=== PATIENT | female | born 2000 | race Caucasian/White ===

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

== ENCOUNTER 2022-01-15 11:04 | Emergency (ER) | payer OTHER, SELFPAY ==
[2022-01-15 11:42] VITALS: BP 124/72; PULSE 84; RESP 18; TEMP 36.6; O2SAT 100
--- NOTE | 2022-01-15 12:35 | ED.GENADULT ---
HPI - General Adult General Chief complaint: Back Pain/Injury Stated complaint: back pain Time Seen by Provider: 01/15/22 11:55 History of Present Illness HPI narrative: 21-year-old female presenting to the emergency department for evaluation of increased lower back pain over the last few days. Patient does work at [employer] and states that she thinks it may be secondary to lifting. Patient states her back pain started a few days ago but has been slowly worsening. Patient denies any specific incident of injury. Patient states she has lower back pain that is worsened with movement. Patient denies any associated numbness or weakness. Patient denies any urinary symptoms. Patient denies . Patient has no prior history of back surgeries. Patient has been taking Excedrin for Related Data Home Medications Medication Instructions Recorded Confirmed ketorolac 10 mg tablet 10 mg PO Q8H 10/12/19 10/12/19 ondansetron 4 mg disintegrating 4 mg PO Q6H 10/12/19 10/12/19 tablet sertraline 50 mg tablet 50 mg PO DAILY 10/12/19 10/12/19 sumatriptan succinate 25 mg tablet 25 mg PO DIRECTED 10/12/19 10/12/19 topiramate 50 mg tablet 50 mg PO BID 10/12/19 10/12/19 Allergies Allergy/AdvReac Type Severity Reaction Status Date / Time bee pollen Allergy Unknown Swelling Verified 11/30/20 18:41 vancomycin AdvReac Unknown Redness of Verified 11/30/20 18:41 Skin Wasp Allergy Unknown Swelling Uncoded 10/12/19 22:19 Review of Systems Review of Systems: CONSTITUTIONAL: Denies fever, chills, or sweats. EYES: Denies visual changes, redness, or discharge. ENT: Denies rhinorrhea, congestion, sore throat, or otalgia. CARDIOVASCULAR: Denies chest pain, palpitations, or edema. RESPIRATORY: Denies cough or dyspnea. GASTROINTESTINAL: Denies abdominal pain, nausea, vomiting, or diarrhea. GENITOURINARY: Denies dysuria or hematuria. SKIN: Denies rash or itching. MUSCULOSKELETAL: Lower back pain NEUROLOGIC: Denies headache, numbness, or weakness. [facility] Past Medical History Medical History Migraine Family History Family History (Updated 10/13/19 @ 03:37 by Luis Felipe Guzman MD) Mother No problems noted. Social History Social History Smoking status: Never smoker Gender identity (if verbalized by the patient): Female Exam Narrative: APPEARANCE: Well appearing, no pain, no distress, well-nourished. HEAD: normocephalic, atraumatic. EYES: PERRLA/EOMI, conjunctivae clear. NOSE: Normal no drainage NECK: Supple. No adenopathy, no masses. RESPIRATORY: Airway patent, respirations nonlabored. Clear to auscultation bilaterally, no rales, rhonchi, wheezing. CARDIOVASCULAR: Regular rate and rhythm without murmurs rubs or gallops. ABDOMINAL: Soft, nontender, nondistended, normal bowel sounds MUSCULOSKELETAL: Moves all extremities. Strength/ROM intact, No edema, No calf tenderness. Reproducible lower back midline tenderness with no step-offs or deformity. NEURO: Alert. Cranial nerves II through XII intact. Grossly intact SKIN: Warm, dry. Normal Color Course Course Emergency Course: Patient and family were updated on the results of exam and plan for treatment at home. Patient will be advised to do Tylenol and ibuprofen for pain control and patient will also be prescribed Flexeril for muscle spasm. Patient was encouraged of close follow-up with her primary care physician. Vital Signs Vital signs: Vital Signs Temperature 97.9 F 01/15/22 11:42 Pulse Rate 84 01/15/22 11:42 Respiratory Rate 18 01/15/22 11:42 Blood Pressure 124/72 01/15/22 11:42 Pulse Oximetry 100 01/15/22 11:42 Oxygen Delivery Room Air 01/15/22 11:42 Temperature 97.9 F 01/15/22 11:42 Pulse Rate 84 01/15/22 11:42 Respiratory Rate 18 01/15/22 11:42 Blood Pressure 124/72 01/15/22 11:42 Pulse Oximetry 100 01/15/22 11:42
== END 2022-01-15 13:04 | disposition home or self-care (01) ==
PROVIDERS: Emergency Provider Emergency Medicine
DX: S39.012A Strain of muscle, fascia and tendon of lower back, initial encounter (principal); X50.0XXA Overexertion from strenuous movement or load, initial encounter
CPT/HCPCS: 99283

== ENCOUNTER 2022-06-07 12:08 | Observation (INO) | payer OTHER, SELFPAY ==
[2022-06-07] VITALS (25 sets, daily range): BP systolic 118–147; BP diastolic 53–92; PULSE 95–122; RESP 11–25; TEMP 36.8–36.9; O2SAT 97–100; BMI 37.9
--- NOTE | ~2022-06-07 | XR_ITS ---
EXAMINATION: XR chest 1V portable 06/07/2022 14:41 INDICATION: Overdose PROCEDURE: AP portable chest COMPARISON: 08/29/2016 FINDINGS: The lungs are clear. The cardiomediastinal silhouette is within normal limits. There are no pleural effusions. There is no pneumothorax suspected. IMPRESSION: 1: NO ACUTE CARDIOPULMONARY DISEASE. Reviewed, dictated and finalized at location A. [facility]
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
--- NOTE | 2022-06-07 12:28 | PC.NURSE ---
call to [place] poison control trintellix- 7-11 hrs peak. drowsy, GI upset Buspar- N/V WATCH OUT SEROTONIN SYNDROME WITHIN 6HRS
[2022-06-07 12:36] LABS: Basophils Absolute Auto 0.1 K/mm3 (0.0-0.1); Eosinophils Absolute Auto 0.4 K/mm3 (0-0.3); Eosinophils Percent Auto 4.9 % (0-4.4); Hematocrit 42.8 % (37.0-47.0); Hemoglobin 13.6 g/dL (12.0-15.0); Immature Granulocyte Absolute 0.03 K/mm3 (0.00-0.031); Immature Granulocyte Percent A 0.3 % (0-0.5); Lymphocytes Absolute Auto 2.28 K/mm3 (0.9-3.2); Lymphocytes Percent Auto 25.5 % (18.3-44.2); Mean Corpuscular HGB Conc 31.8 g/dl (32-36); Mean Corpuscular Hemoglobin 30.1 pg (26-34); Mean Corpuscular Volume 94.7 fl (80-100); Mean Platelet Volume 10.5 fl (7.4-10.4); Monocytes Absolute Auto 0.6 K/mm3 (0.1-0.6); Neutrophils Absolute Auto 5.5 K/mm3 (1.3-6.7); Neutrophils Percent Auto 61.3 % (45.5-73.1); Platelet Count Result 347 k/mm3 (150-375); Red Blood Count 4.52 M/mm3 (4.2-5.4); Red Cell Distribution Width 13.5 % (11.5-14.5)
[2022-06-07 12:45] LABS: Acetaminophen < 10 ug/mL (10-30); Ethanol < 10 mg/dL (<10); Salicylate 1.8 mg/dL (2-20)
[2022-06-07 12:47] LABS: Alanine Aminotransferase 23 U/L (6-35); Albumin Level 4.5 g/dL (3.7-5.6); Alkaline Phosphatase 91 U/L (45-116); Anion Gap 6 mmol/L (8-16); Aspartate Amino Transferase 29 U/L (14-36); Bilirubin,Total 0.3 mg/dL (0.2-1.3); Blood Urea Nitrogen 16 mg/dL (8-21); Carbon Dioxide 30 mmol/L (22-30); Chloride 101 mmol/L (98-107); Estimated CRCL calculation 108 ml/min; Estimated Glomerular Filt Rate > 60; Glucose 85 mg/dL (65-110); Potassium 3.7 mmol/L (3.4-5.0); Sodium 137 mmol/L (134-143)
--- NOTE | 2022-06-07 12:51 | ECG_ITS ---
Measurements Intervals [place] Rate: 101 P: 49 GA: 145 QRS: 53 QRSD: 97 T: 47 QT: 331 QTc: 429 Interpretive Statements SINUS TACHYCARDIA BORDERLINE ECG NO PREVIOUS ECG AVAILABLE FOR COMPARISON Electronically Signed On 06-07-2022 13:06:13 [employer] by Marshall Perez D.O.
[2022-06-07 12:58] LABS: Appearance Urine Clear (Clear); Bilirubin Urine Negative (Negative); Blood Urine Negative (Negative); Color Urine Yellow (Yellow); Glucose Urine UA Negative (Negative); Ketones Urine Negative (Negative); Leukocyte Esterase Ur 1+ LEU/UL (Negative); Nitrate Urine Negative (Negative); Protein Urine Negative (Negative); Urobilinogen Urine 0.2 mg/dL (<2.0)
[2022-06-07 13:08] LABS: Add Urine Microscopic? YES; RBC Urine 0-2 /hpf (0-2); Squamous Epithelial Cell Urine Many /hpf (Few)
[2022-06-07 13:13] LABS: Influenza A QL RT-PCR Negative (Negative); Influenza B QL RT-PCR Negative (Negative); SARS-CoV-2 RNA PCR Negative
[2022-06-07 13:17] LABS: Amphetamine Screen Urine Negative (Negative); Barbiturate Screen Urine Negative (Negative); Benzodiazepines Screen Urine Negative (Negative); Cannabinoid Screen Urine Negative (Negative); Cocaine Screen Urine Negative (Negative); Methadone Screen Urine Negative (Negative); Opiate Screen Urine Negative (Negative); Phencyclidine Screen Urine Negative (Negative)
[2022-06-07] MEDS: SODIUM CHLORIDE 0.9% IV 1,000 ML 999 ML IV CONT ×2 (14:53→16:20)
[2022-06-07] MEDS: IBUPROFEN 600 MG TABLET PO (14:53)
[2022-06-07] MEDS: ACETAMINOPHEN 325 MG TABLET 650 MG PO ×2 (14:54→20:35)
--- NOTE | 2022-06-07 15:24 | PC.NURSE ---
[facility] REQUESTED PER POISON CONTROL
[2022-06-07 15:44] LABS: Device ROOM AIR; Fractional Inspired Oxygen 21 %; HCO3 VBG 25.6 mEq/l (24.0-30.0); PCO2 VBG 47.7 mmHg (42.0-48.0); pH VBG 7.348 (7.300-7.400)
--- NOTE | 2022-06-07 16:10 | ADMGEN ---
This patient, Marielos Renae, was admitted to Intensive Care Unit-4. Patient/family oriented to hospital policies and general routines including ID bracelet, bed and alarms, visiting hours, pain management, procedures, bathroom and other care routines, personal items, smoking policy, room service/diet, and visiting hours. Information on how to activate the Rapid Response Team has been discussed. Patient/Family are encouraged to report perceived risks to care and to ask questions if they do not understand what they are told or what they should do.
--- NOTE | 2022-06-07 16:15 | PM.IMHP ---
H&P: HPI History of Present Illness Date/Time: 06/07/22 16:15 Chief Complaint: Intentional overdose. Narrative: This is a 21-year-old female with history of anxiety and depression who presented to the emergency department for evaluation after intentional overdose. Patient reports that she has suffered from depression and anxiety for many years and ?I have always hated my life and I have wished I was for awhile.? She has sought treatment and was started on BuSpar and Trintellix by her primary care provider about a month ago though she has not noticed any meaningful difference and in fact she has been having anger episodes which never occurred before. She continues to have crying episodes as well. In any event today she had an argument with her grandmother and she reports taking 20 tablets of her BusPar and 5 tablets of her Trintellix in a suicide attempt. Her grandmother saw her take the pills and called 911. She was tachycardic on arrival but vital signs were otherwise stable. Poison Control was contacted and they recommend the patient be watched closely for 8 to 12 hours, specifically watching for hyperthermia, hypertonia, cardiac arrhythmia, seizure, hypertension, and serotonin syndrome. At the time of my evaluation she is resting and has no specific complaints. She is no longer feeling suicidal though mentally she still wishes as though she were . No prior history of suicide attempts or family history of suicide. Review of Systems Review of Systems: Twelve systems were reviewed and are negative except for as per HPI [facility] Past Medical History Medical History (Updated 06/07/22 @ 16:16 by Jaleesa Humphrey PA-C) Anxiety Asthma Major depression Migraine Surgical History Surgical History (Updated 06/07/22 @ 21:56 by Jaleesa Humphrey PA-C) History of cholecystectomy History of tonsillectomy and adenoidectomy Family History Family History Mother No problems noted. Social History Social History (Updated 06/07/22 @ 21:57 by Jaleesa Humphrey PA-C) Social History: Surrogate medical decision maker: Asha Randhawa, mother. Code status: Full code. Smoking status: Never smoker Alcohol intake: never Substance use: never Lack of Transportation: No Lack of Food: Never True Current Housing: I Do Not Have Housing Concerned About Future Housing: No Difficulty Paying Gas/Electric Bills: No Difficulty Paying for Meds: No Currently Unemployed: YES Education: Grade School Difficulty w/ Childcare or Family Care: No Additional living arrangements comments: Lives with family. Additional occupation/education comments: Works at [employer]. Spiritual care concerns: No Meds Home Medications and Allergies Home Medications Medication Instructions Recorded Confirmed Type atogepant 30 mg tablet (Qulipta) 30 mg PO DAILY 06/07/22 06/07/22 History buspirone 5 mg tablet 5 mg BID 06/07/22 06/07/22 History fexofenadine 180 mg tablet 180 mg PO DAILY 06/07/22 06/07/22 History (Allergy Relief (fexofenadine)) vortioxetine 10 mg tablet 10 mg PO DAILY 06/07/22 06/07/22 History (Trintellix) Allergies Allergy/AdvReac Type Severity Reaction Status Date / Time bee pollen Allergy Unknown Swelling Verified 06/07/22 12:25 vancomycin AdvReac Unknown Redness of Verified 06/07/22 12:25 Skin Wasp Allergy Unknown Swelling Uncoded 10/12/19 22:19 Vital Signs Vital Signs - 24 hr 06/07/22 12:09 06/07/22 12:26 06/07/22 12:27 Temperature 98.5 F Pulse Rate 112 H 105 H Respiratory Rate 11 L 18 Blood Pressure 124/84 Pulse Oximetry 100 Oxygen Delivery Room Air 06/07/22 13:13 06/07/22 12:26 06/07/22 12:30 Temperature Pulse Rate 110 H 99 105 H Respiratory Rate 16 11 L 18 Blood Pressure 129/86 Pulse Oximetry 98 Oxygen Delivery 06/07/22 12:31 06/07/22 12:47 06/07/22 13:16 Temperature Pulse Rate 1
[2022-06-07] MEDS: SODIUM CHLORIDE 0.9% IV 1,000 ML 150 ML IV CONT (17:35)
[2022-06-08] VITALS (9 sets, daily range): BP systolic 112–124; BP diastolic 57–101; PULSE 80–108; RESP 14–22; TEMP 36.4–36.8; O2SAT 99–100; BMI 38.7
[2022-06-08] MEDS: SODIUM CHLORIDE 0.9% IV 1,000 ML 150 ML IV CONT (01:03)
[2022-06-08 04:20] LABS: Hematocrit 36.8 % (37.0-47.0); Hemoglobin 11.6 g/dL (12.0-15.0); Mean Corpuscular HGB Conc 31.5 g/dl (32-36); Mean Corpuscular Volume 95.1 fl (80-100); Mean Platelet Volume 10.5 fl (7.4-10.4); Platelet Count Result 253 k/mm3 (150-375); Red Blood Count 3.87 M/mm3 (4.2-5.4); Red Cell Distribution Width 13.3 % (11.5-14.5); White Blood Count 7.5 K/mm3 (4.5-10.0)
[2022-06-08 04:58] LABS: Alanine Aminotransferase 18 U/L (6-35); Albumin Level 3.1 g/dL (3.7-5.6); Alkaline Phosphatase 62 U/L (45-116); Anion Gap 5 mmol/L (8-16); Aspartate Amino Transferase 21 U/L (14-36); Bilirubin,Total 0.3 mg/dL (0.2-1.3); Blood Urea Nitrogen 9 mg/dL (8-21); Calcium 7.6 mg/dL (8.9-10.7); Carbon Dioxide 22 mmol/L (22-30); Chloride 111 mmol/L (98-107); Estimated CRCL calculation 132 ml/min; Estimated Glomerular Filt Rate > 60; Glucose 84 mg/dL (65-110); Magnesium 1.9 mg/dL (1.6-2.3); Potassium 3.7 mmol/L (3.4-5.0); Sodium 138 mmol/L (134-143)
[2022-06-08] MEDS: ACETAMINOPHEN 325 MG TABLET 650 MG PO (05:23)
[2022-06-08 05:28] LABS: Thyroid Stimulating Hormone Reflex 0.763 uIU/mL (0.465-4.68)
--- NOTE | 2022-06-08 08:19 | ECG_ITS ---
Measurements Intervals [place] Rate: 96 P: 48 FL: 159 QRS: 51 QRSD: 94 T: 42 QT: 349 QTc: 443 Interpretive Statements SINUS RHYTHM BASELINE ARTIFACT- AVR, AVF NORMAL ECG COMPARED TO ECG 06/07/2022 12:18:14 SINUS RHYTHM NOW PRESENT Electronically Signed On 06-08-2022 10:43:57 HOT CELL TECHNICIAN by Marshall Perez D.O.
[2022-06-08] MEDS: IBUPROFEN 400 MG TABLET PO ×2 (08:52→15:18)
[2022-06-08] MEDS: SULFAMETHOXAZOLE/TRIMETHOPRIM 800/160 MG DS TABLET 1 TAB PO ×2 (08:52→21:26)
--- NOTE | 2022-06-08 10:38 | WPDCNINT ---
Assessment and Plan Assessment and plan (1) Suicide attempt by multiple drug overdose: Code(s): T50.912A - Poisoning by multiple unspecified drugs, medicaments and biological substances, intentional self-harm, initial encounter Status: Acute Assessment and Plan: Patient took 20 pills of BuSpar and 5 pills of Trintellix yesterday Patient was admitted and supportive treatment was done. Patient clinically improved and currently asymptomatic I repeat EKG this morning which showed normal QRS and QTC Continue one-to-one sitter and suicide precautions until patient is evaluated by Psychiatry (2) Major depression: Code(s): F32.9 - Major depressive disorder, single episode, unspecified Status: Acute Assessment and Plan: Patient has history of major depressive disorder and anxiety Consult psychiatry for evaluation (3) Headache: Code(s): R51.9 - Headache, unspecified Status: Acute Assessment and Plan: Patient has history of migraine headaches P.r.n. ibuprofen Continue qulipta (4) UTI (urinary tract infection): Code(s): N39.0 - Urinary tract infection, site not specified Status: Acute Assessment and Plan: Patient is asymptomatic but UA suggests UTI. Patient reports history of UTIs without having any significant symptoms Urine cultures pending Start p.o. Bactrim Plan DVT prophylaxis -patient is ambulating Nutrition -on regular diet Transfer out of ICU today Donor Relations Coordinator Consult Note Consult date: 06/08/22 Reason for consult: Suicide attempt, overdose HPI: Marielos Renae is a 21 year old female with past medical history of depression anxiety and migraines was admitted yesterday after taking 20 pills of BuSpar and 5 pills of Trintellix as a suicide attempt. This happened after she had an argument with her grandmother. Her grandmother called 911. In ER she was tachycardic but otherwise had stable other vital signs. Poison control was notified and they recommended monitoring and conservative management. Patient was admitted to ICU and was started on IV fluids. EKG was unremarkable. Overnight patient has had no significant change. She states she was having chest pain when she came in yesterday but has resolved. She complains of headache at this time which he rates at 9/10 and tightness and states that is similar to her migraine headache for which she takes Excedrin and Qulipta at home. She states headache is frontal in location, 9/10 severe, tightness in quality and gets worse with bright light and loud sounds. She denies any nausea vomiting photophobia or blurring of vision. Patient denies fever, chest pain, shortness of breath, cough, nausea vomiting, abdominal pain,, diarrhea, headache or constipation. She denies any dysuria hematuria foul-smelling urine. No urgency or retention. All other systems were reviewed and were negative Review of Systems Review of Systems: All systems reviewed & are unremarkable except as noted in HPI and below (HPI) PMFSH Past Medical History Medical History Anxiety Asthma Major depression Migraine Surgical History Surgical History History of cholecystectomy History of tonsillectomy and adenoidectomy Family History Family History Mother No problems noted. Social History Social History Social History: Surrogate medical decision maker: Asha Randhawa, mother. Code status: Full code. Smoking status: Never smoker Alcohol intake: never Substance use: never Lack of Transportation: No Lack of Food: Never True Current Housing: I Do Not Have Housing Concerned About Future Housing: No Difficulty Paying Gas/Electric Bills: No Difficulty Paying for Meds: No Currently Unemployed: YES Education: Grade
--- NOTE | 2022-06-08 13:15 | PC.NURSE ---
Contacted poison control and the patient has been cleared by poison control.
--- NOTE | 2022-06-08 13:56 | PHAR ---
HOME MEDICATION VERIFIED BY PHARMACY: QULIPTA (ATOGEPANT) TABLETS 30MG
[2022-06-08] MEDS: HYDROcodone/acetaminophen (*CRX) 5-325 MG TABLET 1 TAB PO (17:48)
[2022-06-08] MEDS: hydrOXYzine HCL 10 MG TABLET PO (21:26)
--- NOTE | 2022-06-08 22:31 | PC.NURSE ---
2146 Report given to Asif. Voluntary paperwork faxed to intake and verified of receipt. 2220 Patient transport here. Patient cooperative with care. Discharged with transport.
--- NOTE | 2022-06-24 14:12 | P.TS_ITS ---
Transfer Discharge Sum: Prov Provider Date of admission: 06/07/22 14:44 Primary care physician: Janneth Gomez, Admitting clinician: Martín Cuevas MD Consults: 06/07/22 14:45 Consult to Physician Routine Comment: Consulting Provider: Yifan Méndez Reason for consultation: Drug overdose Has provider been notified: Yes Receiving physician/facility: Inpatient psychiatry facility DS: Admitting Diagnosis Discharge Date 06/08/22 Admitting Diagnosis Suicide attempt by drug overdose DS: Discharge Diagnosis Discharge Diagnosis (1) UTI (urinary tract infection): Code(s): N39.0 - Urinary tract infection, site not specified Status: Acute (2) Headache: Code(s): R51.9 - Headache, unspecified Status: Acute (3) Major depression: Code(s): F32.9 - Major depressive disorder, single episode, unspecified Status: Acute (4) Suicide attempt by multiple drug overdose: Code(s): T50.912A - Poisoning by multiple unspecified drugs, medicaments and biological substances, intentional self-harm, initial encounter Status: Acute Transfer Discharge Sum: Med Medications Active and Home Medications: Home Medications atogepant 30 mg tablet (Qulipta) 30 mg PO DAILY 06/07/22 [History Confirmed 06/07/22] buspirone 5 mg tablet 5 mg BID 06/07/22 [History Confirmed 06/07/22] fexofenadine 180 mg tablet (Allergy Relief (fexofenadine)) 180 mg PO DAILY 06/07/22 [History Confirmed 06/07/22] vortioxetine 10 mg tablet (Trintellix) 10 mg PO DAILY 06/07/22 [History C onfirmed 06/07/22] Transfer Discharge Sum: Hosp Hospital Course Hospital course: Marielos Renae is a 21 year old female with past medical history of depression anxiety and migraines was admitted on 06/07 after taking 20 pills of BuSpar and 5 pills of Trintellix as a suicide attempt.? This happened after she had an argument with her grandmother.? Her grandmother called 911.? In ER she was tachycardic but otherwise had stable other vital signs.? Poison control was notified and they recommended monitoring and conservative management.? Patient was admitted to ICU and was started on IV fluids.? EKG was unremarkable.? Overnight patient has had no significant change. Next day repeat EKG showed normal QRS and QTC for her migraine her qulipta was continued and she was treated with p.r.n. ibuprofen and Tylenol. She was asymptomatic but her UA suggested UTI and she was started on p.o. Bactrim. Patient was evaluated by Psychiatry and recommended inpatient psychiatric treatment for her depression and patient was then accepted to a facility and was transferred in stable condition for further evaluation management Time Spent with Patient Time attestation: Total time spent providing and/or coordinating transfer services:
== END 2022-06-08 22:20 | disposition short-term general hospital (02) ==
LOC: ANHED 14:54 → ANHICU 15:41
PROVIDERS: Physician Assistant; Admitting Provider Chiropractor; Emergency Provider Emergency Medicine; PCP Family Medicine; Visit Provider Chiropractor
DX: T43.592A Poisoning by other antipsychotics and neuroleptics, intentional self-harm, initial encounter (principal); T43.292A Poisoning by other antidepressants, intentional self-harm, initial encounter; F32.9 Major depressive disorder, single episode, unspecified; R51.9 Headache, unspecified; N39.0 Urinary tract infection, site not specified; R00.0 Tachycardia, unspecified; F41.9 Anxiety disorder, unspecified; R10.9 Unspecified abdominal pain; Z20.822 Contact with and (suspected) exposure to COVID-19; J45.909 Unspecified asthma, uncomplicated; Z79.899 Other long term (current) drug therapy
CPT/HCPCS: 36415; 71045; 80053; 80307; 81001; 81025; 82803; 83735; 84443; 85025; 85027; 87086; 87636; 93005; 96360; 96361; 99285; A9270; G0378; G0379; J7030

== ENCOUNTER 2022-07-02 13:06 | Emergency (ER) | payer OTHER, SELFPAY ==
[2022-07-02 13:15] VITALS: BP 134/73; PULSE 92; RESP 16; TEMP 36.9; O2SAT 100
--- NOTE | 2022-07-02 13:28 | ED.HEATRA ---
HPI - Head Injury General Chief complaint: Head Injury Stated complaint: Injury to top of head; nausea Time Seen by Provider: 07/02/22 14:17 Source: patient Mode of arrival: ambulatory Limitations: no limitations History of Present Illness HPI Narrative: 21-year-old female presents concern for an injury to the top for head. Reports yesterday she was at work and she was walking under a low metal railing when she stood up a little too fast and hit her head on the metal railing. She denies any loss of consciousness at the time she denies any open skin or laceration. She reports she has had several episodes of nausea without vomiting. Reports headache. Reports she has taken Tylenol. She denies weakness in any extremity, vision changes. MD Complaint: head injury Related Data Home Medications Medication Instructions Recorded Confirmed atogepant 30 mg tablet (Qulipta) 30 mg PO DAILY 06/07/22 06/07/22 fexofenadine 180 mg tablet 180 mg PO DAILY 06/07/22 06/07/22 (Allergy Relief (fexofenadine)) buspirone 10 mg tablet 10 mg PO DAILY 07/02/22 07/02/22 cyclobenzaprine 10 mg tablet 10 mg PO DAILY 07/02/22 07/02/22 duloxetine 30 mg capsule,delayed 30 mg PO DAILY 07/02/22 07/02/22 release famotidine 40 mg tablet 40 mg PO DAILY 07/02/22 07/02/22 meloxicam 15 mg tablet 15 mg PO DAILY 07/02/22 07/02/22 Allergies Allergy/AdvReac Type Severity Reaction Status Date / Time bee pollen Allergy Unknown Swelling Verified 07/02/22 13:28 vancomycin AdvReac Unknown Redness of Verified 07/02/22 13:28 Skin Wasp Allergy Unknown Swelling Uncoded 07/02/22 13:28 Review of Systems Review of Systems: CONSTITUTIONAL: Denies malaise, chills, sweats, or fever. EYES: Denies visual changes, redness, or discharge. ENT: Denies rhinorrhea RESPIRATORY: Denies cough or dyspnea. GASTROINTESTINAL: Denies abdominal pain, vomiting, diarrhea. Reports nausea SKIN: Denies the laceration or abrasion MUSCULOSKELETAL: Denies back pain, joint pain, or myalgia. NEUROLOGIC: Denies numbness, weakness. Reports headache. All systems reviewed & are unremarkable except as noted in HPI and below PMFSH Past Medical History Medical History Anxiety Asthma Major depression Migraine Surgical History Surgical History History of cholecystectomy History of tonsillectomy and adenoidectomy Family History Family History Mother No problems noted. Social History Social History Social History: Surrogate medical decision maker: Asha Randhawa, mother. Code status: Full code. Smoking status: Never smoker Alcohol intake: never Substance use: never Lack of Transportation: No Lack of Food: Never True Current Housing: I Do Not Have Housing Concerned About Future Housing: No Difficulty Paying Gas/Electric Bills: No Difficulty Paying for Meds: No Currently Unemployed: YES Education: Grade School Difficulty w/ Childcare or Family Care: No Additional living arrangements comments: Lives with family. Additional occupation/education comments: Works at [employer]. Spiritual care concerns: No Comments At time of signature, agree with nursing past medical, surgical, social and family history. There is no relevant family history pertinent to the presenting complaint Exam Narrative: GENERAL: Well-appearing, well-nourished, and in no acute distress. HEAD: Normocephalic, atraumatic. EYES: PERRLA, sclera clear, and EOMI. No nystagmus. ENT: Nares clear, turbinates pink, no rhinorrhea or epistaxis. Mucous membranes moist. NECK: Supple. CHEST: No respiratory distress. Clear to auscultation. No bony deformities, no asymmetry. Speaks in full sentences. HEART: Regular rate and rhythm. No murmur heard. Normal peripheral pulses. EXTREMITIES: Normal range
== END 2022-07-02 14:27 | disposition home or self-care (01) ==
PROVIDERS: Emergency Provider Nurse Practitioner; PCP Family Medicine
DX: S09.90XA Unspecified injury of head, initial encounter (principal); W22.8XXA Striking against or struck by other objects, initial encounter; J45.909 Unspecified asthma, uncomplicated; F41.9 Anxiety disorder, unspecified; F32.9 Major depressive disorder, single episode, unspecified
CPT/HCPCS: 99212; G0463

== ENCOUNTER 2022-09-27 13:30 | Outpatient (RCR) | payer BC, OTHER, SELFPAY ==
--- NOTE | 2022-08-16 14:57 | PTOPEVAL1 ---
Assessment and note entered by Jordyn Albert DPT Evaluation Information Assessment Status Evaluation Subjective Information Pt reports pelvic pain. Feels a pressure , feels like she cannot get urine out at times. Significant pain during her most recent pelvic exam and transvaginal ultrasounds due to cysts. Highest pain recently 8-9/10 and lowest 3-4/10. Urinates anywhere from 5-20 times a day depending on intake. Urinates maybe 1 time at night. Can hold urine less than an hour and will start feeling pain and sometimes has pain with actually urinating. Denies urine leakage. BM are very infrequent, up to 2 weeks in between. Pressure with BM. Has a history of gall stones and bowel issues since taking antibiotics for cellulitis. Pt is sexually active, with pain, and has pain with tampon use. Pt has never been . No return appointment scheduled. Reported Pain Level Pain Score 5: Self Report Assessment PT Clinical Summary The patient is presenting to skilled therapy with pelvic pain. She presents with decreased hip and core strength and likely increased pelvic floor muscle tone (will assess next visit, patient request) which are contributing to her pain with tampon use, pelvic exam, and difficulty urinating. She will benefit from therapy to address these impairments and decrease pain. Plan of Care Interventions Electrical Stimulation,Hot Pack/Cold Pack,Manual Therapy,Neuro Re-education,Patient/Caregiver Education,Therapeutic Activities,Therapeutic Exercise,Self-Care/Home Management PT Services Indicated Yes Treatment Frequency and 1 time a week for 6 weeks Duration These treatments will address the objective and functional deficits as defined above. The patient will be advanced safely and appropriately in order for the patient to progress towards his/her prior level of function. Additional exercises will be introduced and as well as a comprehensive home exercise program upon discharge, if needed, ?to ensure carryover of functional gains achieved in the clinic. This treatment plan has been reviewed and agreement upon by the patient.
--- NOTE | 2022-09-27 14:02 | PTOPPROG ---
Assessment and note entered by Jodryn Albert DPT Evaluation Information Assessment Status Progress Subjective Information Pt reports in general she is not feeling well today. States that therapy has been going good . Highest pain in the last week 0/10. Still does not have an appointment scheduled with the new OB-ADMINISTRATIVE ASSOCIATE she will be referred to. Still having daily bleeding but not as much. Has still had notable pain with attempts at intercourse and reports difficulty initiating urine stream. Assessment PT Clinical Summary The patient has made some progress in therapy. She reports decreased pain with pelvic exam and demonstrates improved hip strength. She continues to report difficulty initiating urine stream and has significant pain with pelvic floor palpation or attempts at intercourse. She will benefit from further therapy to address pain and allow for full tolerance of pelvic exam, pap smear, etc. Plan of Care Interventions Electrical Stimulation,Hot Pack/Cold Pack,Manual Therapy,Neuro Re-education,Patient/Caregiver Education,Therapeutic Activities,Therapeutic Exercise PT Services Indicated Yes Treatment Frequency and 1 time a week for 4 weeks Duration These treatments will address the objective and functional deficits as defined above. The patient will be advanced safely and appropriately in order for the patient to progress towards his/her prior level of function. Additional exercises will be introduced and as well as a comprehensive home exercise program upon discharge, if needed, ?to ensure carryover of functional gains achieved in the clinic. This treatment plan has been reviewed and agreement upon by the patient.
--- NOTE | 2022-10-11 13:45 | PTOPDC ---
Assessment and note entered by Jordyn Albert DPT Evaluation Information Assessment Status Discharge - Pt Not Present Subjective Information Assessment PT Clinical Summary Patient is self discharging this date due to other family issues. Will call when she is able to come back in. Plan of Care PT Services Indicated No
== END 2022-10-12 08:26 | disposition home or self-care (01) ==
LOC: ANHGOSHPT 13:30
PROVIDERS: PCP Family Medicine; Visit Provider Obstetrics & Gynecology
DX: R29.898 Other symptoms and signs involving the musculoskeletal system (principal)
CPT/HCPCS: 97110; 97112; 97140; 97162

== ENCOUNTER 2022-11-25 13:01 | Outpatient (CLI) | payer BC, OTHER, SELFPAY ==
--- NOTE | ~2022-11-25 | US_ITS ---
EXAMINATION: US venous doppler [facility] DATE: 11/25/2022 13:35 INDICATION: Right lower limb pain TECHNIQUE: Grayscale ultrasound images without and with compression and Doppler ultrasound images of the left lower extremity veins were obtained. COMPARISON: None. FINDINGS: The visualized portions of left common femoral vein, profunda (deep) femoral vein, femoral vein, popl iteal vein, peroneal veins, posterior tibial veins, gastrocnemius vein and greater saphenous vein out flow are patent. IMPRESSION: 1. No deep venous thrombosis in the left lower limb. Reviewed, dictated and finalized at location L.
== END 2022-11-25 13:02 | disposition home or self-care (01) ==
PROVIDERS: PCP Family Medicine; Visit Provider Family Medicine
DX: M79.605 Pain in left leg (principal)
CPT/HCPCS: 93971

== ENCOUNTER 2022-12-13 02:54 | Day surgery (SDC) | payer BC, OTHER, SELFPAY ==
[2022-12-02 10:22] VITALS: BMI 27.1
--- NOTE | 2022-12-10 17:26 | WPDANESEPP ---
Anes - Eval Pre Procedure Procedure: Operation Date: 12/13/22 09:30 Proposed Procedures p Esophagogastroduodenoscopy - Florian Jones MD Date/Time: 12/10/22 17:26 Pre Op Diagnosis: nausea, epigastric pain Patient Data Age: 22 Gender: F Height: 1.69 m Weight: 77.25 kg Allergies Allergy/AdvReac Type Severity Reaction Status Date / Time bee pollen Allergy Unknown Swelling Verified 11/29/22 13:28 vancomycin Allergy Unknown Redness of Verified 12/02/22 10:13 Skin Wasp Allergy Unknown Swelling Uncoded 11/29/22 13:28 Home Medications Medication Instructions Recorded Confirmed Type atogepant 30 mg tablet (Qulipta) 30 mg PO DAILY 06/07/22 12/02/22 History fexofenadine 180 mg tablet 180 mg PO DAILY 06/07/22 12/02/22 History (Allergy Relief (fexofenadine)) buspirone 10 mg tablet 10 mg PO DAILY 07/02/22 12/02/22 History cyclobenzaprine 10 mg tablet 10 mg PO DAILY PRN Muscle Spasm 07/02/22 12/02/22 History meloxicam 15 mg tablet 15 mg PO DAILY 07/02/22 12/02/22 History hyoscyamine sulfate 0.125 mg 0.125 mg PO .every 6 hours PRN 11/29/22 12/02/22 Rx tablet (Levsin) abdominal pain #120 tabs rifaximin 550 mg tablet (Xifaxan) 550 mg PO TID 14 days #42 tabs 11/29/22 12/02/22 Rx albuterol sulfate 90 mcg/actuation 2 puff inhalation Q4H PRN 12/02/22 12/02/22 History aerosol inhaler Shortness Of Breath Or Wheezing mijbeff-htlwgkjbffmyz-qymzgkri 250 1 tablet PO Q4-6H PRN Migraine 12/02/22 12/02/22 History mg-250 mg-65 mg tablet (Excedrin Headache Migraine) duloxetine 60 mg capsule,delayed 60 mg PO DAILY 12/02/22 12/02/22 History release ondansetron 8 mg disintegrating 8 mg PO TID PRN Nausea And Vomiting 12/02/22 12/02/22 History tablet pantoprazole 40 mg tablet,delayed 40 mg PO DAILY 12/02/22 12/02/22 History release Patient hx anesthesia problems: none Family hx anesthesia problems: none Results Review: All pre-operative results and documents have been reviewed as part of the pre-operative evaluation. [facility] Past Medical History Medical History Anxiety Asthma Chronic constipation Decreased appetite Early satiety Epigastric pain Major depression Migraine Nausea Weight loss Surgical History Surgical History History of cholecystectomy History of tonsillectomy and adenoidectomy Family History Family History Mother No problems noted. Social History Social History Social History: Surrogate medical decision maker: Asha Randhawa, mother. Code status: Full code. Smoking status: Never smoker Alcohol intake: current Substance use: never Substance use type: does not use Lack of Transportation: No Lack of Food: Never True Current Housing: I Do Not Have Housing Concerned About Future Housing: No Difficulty Paying Gas/Electric Bills: No Difficulty Paying for Meds: No Currently Unemployed: YES Education: Grade School Difficulty w/ Childcare or Family Care: No Living arrangements: with family Additional living arrangements comments: Lives with family. Additional occupation/education comments: Works at [employer]. Spiritual care concerns: No Exam Day of Procedure 12/10/22 17:26
[2022-12-13 08:16] VITALS: BP 72/54; PULSE 103; RESP 16; TEMP 36.4; O2SAT 100
[2022-12-13] MEDS: LACTATED RINGERS 1,000 ML 150 ML IV CONT (08:23)
--- NOTE | 2022-12-13 08:43 | WPDHPUPDATE1 ---
History and Physical Update Update Date/Time: 12/13/22 08:43 History and Physical has been reviewed, including an updated exam of the patient. There are NO changes in the patient's condition. Risks, benefits, and alternatives have been discussed and questions answered. Patient agrees to proceed with procedure.
--- NOTE | 2022-12-13 08:56 | P.PNAN_ITS ---
Anes - Eval Final PreProcedure Day of Procedure 12/13/22 08:56 Patient weight: overweight Heart: regular rate and rhythm Lungs: clear to auscultation Airway: Mallampati scale class III and special considerations poor opening Neurological: alert and oriented Last oral intake: >/= 8 hours ASA classification: III Emergent: no Anesthetic plan: proceed Anesthesia type and monitoring: general GIVS and standard monitoring Results Review: All pre-operative results and documents have been reviewed as part of the pre- operative evaluation. Informed Consent: The patient's anesthetic plan and its attendant risks and benefits were discussed with the patient/family/POA. Questions were solicited and answers provided to the satisfaction of the patient/family/POA.
[2022-12-13 09:57] VITALS: BP 104/62; PULSE 85; RESP 15; O2SAT 100
[2022-12-13 10:07] VITALS: BP 121/68; PULSE 80; RESP 20; O2SAT 100
[2022-12-13 10:17] VITALS: BP 111/71; PULSE 82; RESP 16; O2SAT 100
== END 2022-12-13 10:27 | disposition home or self-care (01) ==
PROVIDERS: PCP Family Medicine; Visit Provider Internal Medicine Gastroenterology
PROC: 0DJ08ZZ Inspection of Upper Intestinal Tract, Via Natural or Artificial Opening Endoscopic (ICD-10-PCS; CPT 43235; principal; 2022-12-13 09:30)
DX: K25.9 Gastric ulcer, unspecified as acute or chronic, without hemorrhage or perforation (principal); B96.81 Helicobacter pylori [H. pylori] as the cause of diseases classified elsewhere; K21.9 Gastro-esophageal reflux disease without esophagitis; K59.09 Other constipation; R11.0 Nausea; R68.81 Early satiety; R63.0 Anorexia; J45.909 Unspecified asthma, uncomplicated; F41.9 Anxiety disorder, unspecified; R63.4 Abnormal weight loss; Z79.82 Long term (current) use of aspirin; Z79.51 Long term (current) use of inhaled steroids
CPT/HCPCS: 43239; 87081; 88305; 88342; J2704; J7120

== ENCOUNTER 2023-02-19 10:44 | Emergency (ER) | payer BC, OTHER, SELFPAY ==
--- NOTE | ~2023-02-19 | CT_ITS ---
EXAMINATION: CT brain wo con INDICATION: Headache COMPARISON: 10/12/2019 TECHNIQUE: Standard unenhanced head CT. The dose-length product (DLP) was 529.67 mGy-cm. The mA was a djusted according to patient size. Iterative reconstruction technique was employed. FINDINGS: No intracranial hemorrhage, acute infarction, or abnormal mass lesion. The ventricles are n ormal. No abnormal mass effect or midline shift. The hannah-white matter differentiation is normal. The basal cisterns are patent. The orbits are normal. The paranasal sinuses, mastoids and calvarium are normal. IMPRESSION: 1. No acute intracranial abnormality. Reviewed, dictated and finalized at location F.
[2023-02-19 10:54] VITALS: BP 122/78; PULSE 98; RESP 18; TEMP 36.9; O2SAT 99
--- NOTE | 2023-02-19 11:39 | ED.HA ---
HPI - Headache General Chief Complaint: Headache Stated Complaint: 7 day migraine Time Seen by Provider: 02/19/23 11:00 Source: patient Mode of arrival: ambulatory Limitations: no limitations History of Present Illness HPI Narrative: This is a 22 year old female that presents to the ER for a headache present over the last week. Reports history of migraines. She is on Qulipta for this. But she had recently ran out and was out of it for several days. She has been taking Excedrin with little relief. No recent injuries or trauma. Denies fever, vision changes, vomiting, numbness or weakness. Related Data Home Medications Medication Instructions Recorded Confirmed atogepant 30 mg tablet (Qulipta) 30 mg PO DAILY 06/07/22 01/04/23 fexofenadine 180 mg tablet 180 mg PO DAILY 06/07/22 01/04/23 (Allergy Relief (fexofenadine)) buspirone 10 mg tablet 10 mg PO DAILY 07/02/22 01/04/23 cyclobenzaprine 10 mg tablet 10 mg PO DAILY PRN Muscle Spasm 07/02/22 01/04/23 meloxicam 15 mg tablet 15 mg PO DAILY 07/02/22 01/04/23 albuterol sulfate 90 mcg/actuation 2 puff inhalation Q4H PRN 12/02/22 01/04/23 aerosol inhaler Shortness Of Breath Or Wheezing egmmeom-erhfrxvszlcrn-bxrmkpeb 250 1 tablet PO Q4-6H PRN Migraine 12/02/22 01/04/23 mg-250 mg-65 mg tablet (Excedrin Headache Migraine) duloxetine 60 mg capsule,delayed 60 mg PO DAILY 12/02/22 01/04/23 release omeprazole 20 mg tablet,delayed 20 mg PO DAILY 01/04/23 01/04/23 release Allergies Allergy/AdvReac Type Severity Reaction Status Date / Time bee pollen Allergy Unknown Swelling Verified 02/19/23 10:58 vancomycin Allergy Unknown Redness of Verified 02/19/23 10:58 Skin venom-wasp protein Allergy Swelling Verified 02/19/23 10:58 Review of Systems Review of Systems: CONSTITUTIONAL: Denies fever EYES: Denies visual changes GASTROINTESTINAL: Denies vomiting NEUROLOGIC: Reports headache. Denies numbness, or weakness. All systems reviewed & are unremarkable except as noted in HPI and below PMFSH Past Medical History Medical History (Updated 02/19/23 @ 14:26 by Cayla Poe PA-C) Anxiety Asthma Chronic constipation Decreased appetite Early satiety Encounter for IUD removal Epigastric pain Lymph edema lower extremities Major depression Migraine Mild scoliosis Nausea PUD (peptic ulcer disease) Weight loss Surgical History Surgical History (Updated 01/04/23 @ 10:34 by LAURYN Ken) History of cholecystectomy History of endoscopy (12/13/22) stomach ulcers History of gynecological procedure (02/25/21) mirena iud insertion History of gynecological procedure (01/04/23) mirena iud removal History of placement of ear tubes x 3 History of tonsillectomy and adenoidectomy Family History Family History (Updated 12/14/22 @ 14:39 by LAURYN Ken) Mother No problems noted. Grandparent Breast cancer paternal grandmother Social History Social History (Updated 12/14/22 @ 14:38 by LAURYN Ken) Social History: Surrogate medical decision maker: Asha Randhawa, mother. Code status: Full code. Smoking status: Never smoker Alcohol intake: current Substance use: never Substance use type: does not use Lack of Transportation: No Lack of Food: Never True Current Housing: I Have Housing Concerned About Future Housing: No Difficulty Paying Gas/Electric Bills: No Difficulty Paying for Meds: No Currently Unemployed: No Education: Grade School Difficulty w/ Childcare or Family Care: No Living arrangements: with family Additional living arrangements comments: Lives boyfriend and his granmother Occupation/Education: occupation Additional occupation/education comments: Works at [employer]. Gender identity (if verbalized by the patient): Female Sexual Orientation (if Verbalized by the Patient): Straight or Heterosexual Spiritual care concerns: No Exam Narrative: GENERAL: We
--- NOTE | 2023-02-19 11:57 | PC.NURSE ---
pt taken to CT at this time
[2023-02-19 12:37] VITALS: BP 103/72; PULSE 77; RESP 17; O2SAT 100
[2023-02-19] MEDS: SODIUM CHLORIDE 0.9% IV 1,000 ML 999 ML IV CONT (12:38)
[2023-02-19] MEDS: diphenhydrAMINE HCl INJ 50 MG/ML VIAL 25 MG IV PUSH (12:39)
[2023-02-19] MEDS: ACETAMINOPHEN 500 MG TABLET 1000 MG PO (12:39)
[2023-02-19] MEDS: METOCLOPRAMIDE HCL INJ 10 MG/2 ML VIAL IV PUSH (12:39)
[2023-02-19 14:36] VITALS: BP 109/52; PULSE 83; RESP 18; O2SAT 100
== END 2023-02-19 14:37 | disposition home or self-care (01) ==
PROVIDERS: Emergency Provider Physician Assistant; PCP Family Medicine
DX: R51.9 Headache, unspecified (principal); J45.909 Unspecified asthma, uncomplicated; K59.09 Other constipation; R68.81 Early satiety; F41.9 Anxiety disorder, unspecified; F32.A Depression, unspecified; Z87.11 Personal history of peptic ulcer disease; Z79.82 Long term (current) use of aspirin; Z90.49 Acquired absence of other specified parts of digestive tract
CPT/HCPCS: 70450; 81025; 96361; 96374; 96375; 99284; A9270; J1200; J2765; J7030

== ENCOUNTER 2023-12-10 09:24 | Emergency (ER) | payer BC, SELFPAY ==
--- NOTE | 2023-12-10 09:28 | ECG_ITS ---
Test Date: 2023-12-10 09:36:20 Measurements Intervals [place] Rate: 75 P: 67 FL: 136 QRS: 57 QRSD: 92 T: 52 QT: 344 QTc: 384 Interpretive Statements SINUS RHYTHM BASELINE ARTIFACT- II, III, AVR, AVL, AVF, V1-V6 NORMAL ECG No previous ECG available for comparison Electronically Signed On 12-10-2023 15:22:24 CDT by Marshall Perez D.O.
[2023-12-10 09:41] VITALS: BP 144/94; PULSE 107; RESP 22; TEMP 37.7; O2SAT 99
--- NOTE | 2023-12-10 09:43 | ED.GENADULT ---
HPI - General Adult General Chief complaint: Chest Pain Stated complaint: Chest Wall Pain Time Seen by Provider: 12/10/23 09:36 Source: patient, RN notes reviewed and old records reviewed Mode of arrival: ambulatory Limitations: no limitations History of Present Illness HPI narrative: 23-year-old female presents to the [facility] with complaints of left-sided chest pain and back pain. Worsening over the last 5 days. Patient reports some upper respiratory symptoms. Reports seeing a primary care doctor 2 weeks ago, was told that she is having anxiety. Did follow-up with a new primary yesterday, Tay liriano yesterday but did not mention the chest discomfort. Denies nausea vomiting, shortness of breath. Patient has a history of lymphedema States that she has taken Tylenol in Motrin with no relief Onset (ago): day(s) (5) Severity scale (1-10): 10 Treatments prior to arrival: NSAID and other (Acetaminophen) Related Data Home Medications Medication Instructions Recorded Confirmed atogepant 30 mg tablet (Qulipta) 30 mg PO DAILY 06/07/22 12/10/23 fexofenadine 180 mg tablet 180 mg PO DAILY 06/07/22 12/10/23 (Allergy Relief (fexofenadine)) buspirone 10 mg tablet 10 mg PO DAILY 07/02/22 12/10/23 cyclobenzaprine 10 mg tablet 10 mg PO DAILY PRN Muscle Spasm 07/02/22 12/10/23 albuterol sulfate 90 mcg/actuation 2 puff inhalation Q4H PRN 12/02/22 12/10/23 aerosol inhaler Shortness Of Breath Or Wheezing duloxetine 60 mg capsule,delayed 60 mg PO DAILY 12/02/22 12/10/23 release amoxicillin 250 mg capsule See Rx Instructions .Route .COMPLEX 12/10/23 12/10/23 aripiprazole 5 mg tablet 5 mg PO DAILY 12/10/23 12/10/23 levofloxacin 500 mg tablet See Rx Instructions .Route .COMPLEX 12/10/23 12/10/23 meloxicam 7.5 mg tablet See Rx Instructions .Route .COMPLEX 12/10/23 12/10/23 norgestimate-ethinyl estradiol 1 tablet PO DAILY 12/10/23 12/10/23 0.18 mg/0.215mg/0.25mg-35 mcg(28)tablet (Tri-Sprintec (28)) omeprazole 40 mg capsule,delayed 40 mg PO DAILY 12/10/23 12/10/23 release ondansetron 4 mg disintegrating See Rx Instructions .Route .COMPLEX 12/10/23 12/10/23 tablet Allergies Allergy/AdvReac Type Severity Reaction Status Date / Time bee pollen Allergy Severe Swelling Verified 12/10/23 12:21 venom-wasp protein Allergy Severe Swelling Verified 12/10/23 12:21 vancomycin Allergy Intermediate Redness of Verified 12/10/23 12:21 Skin Review of Systems Review of Systems: All systems reviewed & are unremarkable except as noted in HPI and below Constitutional: Constitutional: Reports no additional constitutional complaints Eyes: Eyes: Reports no additional eye complaints ENT: Reports as per HPI Cardiovascular: Cardiovascular: Reports as per HPI, Reports chest pain, Reports leg edema (Chronic, lymphedema) and Denies dyspnea Respiratory: Respiratory: Reports no additional respiratory complaints, Denies chest congestion, Denies cough and Denies dyspnea Gastrointestinal: Gastrointestinal: Reports no additional gastrointestinal complaints, Denies abdominal pain, Denies nausea and Denies vomiting Musculoskeletal: Musculoskeletal: Reports no additional musculoskeletal complaints Integumentary/Breasts: Skin/Breast: Reports system reviewed and no additional complaints, except as docu Neurologic: Reports system reviewed and no additional complaints, except as documented Psychiatric: Psychiatric: Reports no additional psychiatric complaints Allergic/Immunologic: Allergic/Immunologic: Reports no additional allergic/immunologic complaints PMFSH Past Medical History Medical History Anxiety Asthma BMI 27.0-27.9,adult Chronic constipation Decreased appetite Early satiety Encounter for IUD removal Epigastric pain Lymph edema lower extremities Major depression Migraine Mild scoliosis Nausea PUD (peptic ulcer disease) Weight loss Surgical History Surgical History (Reviewed
[2023-12-10 10:14] LABS: EDINFLUBSCREEN Negative
== END 2023-12-10 09:57 | disposition short-term general hospital (02) ==
PROVIDERS: Emergency Provider Nurse Practitioner; PCP Family Medicine
DX: M54.6 Pain in thoracic spine (principal); F41.9 Anxiety disorder, unspecified; R07.89 Other chest pain; Z20.822 Contact with and (suspected) exposure to COVID-19; J45.909 Unspecified asthma, uncomplicated; F32.A Depression, unspecified
CPT/HCPCS: 87426; 87804; 93005; 99213; G0463

== ENCOUNTER 2024-03-28 11:27 | Outpatient (CLI) | payer BC, SELFPAY | END 2024-03-28 11:28 | disposition home or self-care (01) | PROVIDERS: PCP Physician Assistant Medical; Visit Provider Student in an Organized Health Care Education/Training Program | DX: R32 Unspecified urinary incontinence (principal) | CPT/HCPCS: 87086 ==

== ENCOUNTER 2024-04-11 14:31 | Outpatient (CLI) | payer BC, SELFPAY ==
--- NOTE | ~2024-04-11 | US_ITS ---
EXAMINATION: US pelvic complete w TV DATE: 04/11/2024 15:21 INDICATION: Pelvic and perineal pain. TECHNIQUE: Multiple transabdominal and transvaginal sonographic images of the pelvis were obtained. COMPARISON: Ultrasound 04/06/2017 FINDINGS: TRANSABDOMINAL ULTRASOUND: The uterus measures 6.0 x 2.7 x 3.4 cm. There is no free fluid in the pelvis. TRANSVAGINAL ULTRASOUND: The endometrial complex measures 4 mm in thickness. The right ovary measures 3.1 x 1.7 x 1.4 cm. The left ovary measures 2.3 x 1.5 x 2.2 cm. There is normal vascular flow in the ovaries. IMPRESSION: 1. Normal pelvis. Reviewed, dictated and finalized at location A. ERY MATER IMPRESSION: 1. Normal pelvis.
== END 2024-04-11 14:32 | disposition home or self-care (01) ==
PROVIDERS: PCP Physician Assistant Medical; Visit Provider Student in an Organized Health Care Education/Training Program
DX: R10.2 Pelvic and perineal pain (principal)
CPT/HCPCS: 76830; 76856